=== PATIENT | female | born 1950 | race Caucasian/White ===

== ENCOUNTER 2017-12-02 13:36 | Inpatient (IN) | payer OTHER, BC ==
[~2017-12-02] VITALS: Ht 152.4 cm; Wt 92.1 kg
[~2017-12-02 13:36] MED LIST: ALEVE220 MG PO; BENAZEPRIL HCL20 MG PO; OMEPRAZOLE40 M1 PO; VENLAFAXINE H37.5 M3 PO; [UNRECOGNIZED DRUG - OTHER] PO
[2017-12-02 14:11] LABS: HEMATOCRIT 40.9 % (36.0-46.0); HEMOGLOBIN 14.1 G/DL (11.9-15.5); MCH 31.8 PG (29.0-34.0); MCHC 34.5 G/DL (30.0-36.0); MCV 92.3 FL (83-99); PLATELET COUNT 330 K/uL (156-360); RBC DIS.WIDTH-CV 12.1 % (11.8-14.6); RBC DIS.WIDTH-SD 40.9 % (39-53); RED BLOOD COUNT 4.43 M/uL (3.80-5.20); WHITE BLOOD COUNT 8.4 K/uL (4.1-10.2)
[2017-12-02 14:16] LABS: CHLORIDE 107 mEq/L (99-109); POTASSIUM 3.8 mEq/L (3.7-5.4); SODIUM 138 mEq/L (136-147)
[2017-12-02 14:18] LABS: GLUCOSE 119 mg/dL (70-99)
[2017-12-02 14:22] LABS: CREATININE 0.7 mg/dL (0.6-1.3); GFR ESTIMATE (CALCULATED) > 59 mL/min/
[2017-12-02 14:23] LABS: UREA NITROGEN (BUN) 13 mg/dL (9-23)
[2017-12-02] MEDS ORDERED: GABAPENTIN100 MG PO (15:59)
[2017-12-02] MEDS ORDERED: CYMBALTA60 MG PO (15:59)
[2017-12-02] MEDS ORDERED: CYANOCOBALAM1000 MCG PO (15:59)
[2017-12-02] MEDS ORDERED: LISINOPRIL5 MG PO (15:59)
[2017-12-02] MEDS ORDERED: VITAMIN D31000 UNI2 PO (15:59)
[2017-12-02 17:32] LABS: HDL CHOLESTEROL 51 MG/DL (Desirable>=50); LDL CHOLESTEROL 105 mg/dL (Desirable<100); NON-HDL CHOLESTEROL 149 mg/dL (Desirable<160); TOTAL CHOLESTEROL 200 mg/dL (Desirable<200); TRIGLYCERIDES 218 MG/DL (Normal: <150)
[2017-12-02 19:56] VITALS: BP 160/102
[2017-12-02 20:00] VITALS: BP 150/92
[2017-12-03] VITALS: BP 134/63
[2017-12-03 03:55] VITALS: BP 158/75
[2017-12-03 07:55] VITALS: BP 139/82
[2017-12-03 11:48] VITALS: BP 100/79
[2017-12-03 12:04] LABS: HEMOGLOBIN A1c (GLYCOHEMOGLOB) 5.7 % (Below 5.7)
[2017-12-03 16:30] VITALS: BP 140/70
[2017-12-03 22:00] VITALS: BP 142/72
[2017-12-04] VITALS: BP 146/80
[2017-12-04 03:58] VITALS: BP 148/68
[2017-12-04 07:13] VITALS: BP 157/74
[2017-12-04 10:55] VITALS: BP 138/69
[2017-12-04] MEDS ORDERED: ATORVASTATIN CA40 MG PO (11:41)
[2017-12-04] MEDS ORDERED: ASPIRIN EC325 MG PO (11:42)
== END 2017-12-04 13:29 | DRG 66 ==
LOC: EME 13:36 → EDOF 16:17 → 5SOUTH 16:17 → ENRESERV 16:18 → 5SOUTH 17:45
PROVIDERS: Hospitalist
DX: I63.9 Cerebral infarction, unspecified (principal); I10 Essential (primary) hypertension; G44.89 Other headache syndrome; K21.9 Gastro-esophageal reflux disease without esophagitis; G43.909 Migraine, unspecified, not intractable, without status migrainosus; F17.200 Nicotine dependence, unspecified, uncomplicated; I73.9 Peripheral vascular disease, unspecified; Z79.899 Other long term (current) drug therapy; Z90.710 Acquired absence of both cervix and uterus
CPT/HCPCS: 70450; 70496; 70498; 70551; 71045; 80048; 80061; 82948; 83036; 85027; 93005; 93306; 94640 76; 97530 GO; 99202; J1650; J7030

== ENCOUNTER 2017-12-04 08:56 | Inpatient (IN) | payer OTHER, BC ==
[~2017-12-04] VITALS: Ht 152.4 cm; Wt 94.7 kg
[~2017-12-04 08:56] MED LIST changes: +CYANOCOBALAM1000 MCG PO; +CYMBALTA60 MG PO; +GABAPENTIN100 MG PO; +LISINOPRIL5 MG PO; +VITAMIN D31000 UNI2 PO
[2017-12-04] MEDS ORDERED: ATORVASTATIN CA40 MG PO (11:41)
[2017-12-04] MEDS ORDERED: ASPIRIN EC325 MG PO (11:42)
[2017-12-04 14:00] VITALS: BP 132/70
[2017-12-05] VITALS: BP 144/83
[2017-12-05 05:04] VITALS: BP 155/68
[2017-12-05 06:31] LABS: HEMATOCRIT 35.9 % (36.0-46.0); MCH 31.8 PG (29.0-34.0); MCHC 33.7 G/DL (30.0-36.0); MCV 94.5 FL (83-99); PLATELET COUNT 264 K/uL (156-360); RBC DIS.WIDTH-CV 12.4 % (11.8-14.6); RBC DIS.WIDTH-SD 43.3 % (39-53); WHITE BLOOD COUNT 5.9 K/uL (4.1-10.2)
[2017-12-05 06:37] LABS: HEMOGLOBIN 12.1 G/DL (11.9-15.5)
[2017-12-05 06:44] LABS: ALBUMIN 3.3 G/DL (3.2-4.8); ALKALINE PHOSPHATASE 64 IU/L (3-129); ALT (GPT) 11 IU/L (3-49); AST (GOT) 15 IU/L (2-34); CHLORIDE 108 MEQ/L (99-109); CREATININE 0.7 MG/DL (0.6-1.3); GFR ESTIMATE (CALCULATED) > 59 mL/min/; GLUCOSE 100 mg/dL (70-99); POTASSIUM 4.4 MEQ/L (3.7-5.4); SODIUM 141 MEQ/L (136-147); TOTAL BILIRUBIN 0.3 MG/DL (0.0-1.0); TOTAL PROTEIN 5.4 G/DL (6.4-8.3); UREA NITROGEN (BUN) 12 mg/dL (9-23)
[2017-12-05 15:21] VITALS: BP 138/78
[2017-12-06 05:54] VITALS: BP 178/79
[2017-12-06 07:39] VITALS: BP 133/67
[2017-12-06 14:56] VITALS: BP 136/74
[2017-12-07 05:28] VITALS: BP 145/72
[2017-12-07 15:00] VITALS: BP 125/77
[2017-12-08 05:32] VITALS: BP 122/59
[2017-12-08 15:26] VITALS: BP 121/61
[2017-12-09 05:37] VITALS: BP 116/59
[2017-12-09 15:29] VITALS: BP 125/66
[2017-12-10 05:06] VITALS: BP 121/60
[2017-12-10 15:27] VITALS: BP 119/75
[2017-12-10 17:07] VITALS: BP 135/74
[2017-12-11 05:28] LABS: HEMATOCRIT 38.5 % (36.0-46.0); HEMOGLOBIN 12.6 G/DL (11.9-15.5); MCHC 32.7 G/DL (30.0-36.0); MCV 94.8 FL (83-99); PLATELET COUNT 284 K/uL (156-360); RBC DIS.WIDTH-CV 12.7 % (11.8-14.6); RED BLOOD COUNT 4.06 M/uL (3.80-5.20); WHITE BLOOD COUNT 8.3 K/uL (4.1-10.2)
[2017-12-11 05:56] LABS: ALBUMIN 3.7 G/DL (3.2-4.8); ALKALINE PHOSPHATASE 75 IU/L (3-129); ALT (GPT) 21 IU/L (3-49); AST (GOT) 22 IU/L (2-34); CHLORIDE 105 MEQ/L (99-109); CREATININE 0.7 MG/DL (0.6-1.3); GFR ESTIMATE (CALCULATED) > 59 mL/min/; GLUCOSE 107 mg/dL (70-99); POTASSIUM 4.6 MEQ/L (3.7-5.4); SODIUM 140 MEQ/L (136-147); TOTAL BILIRUBIN 0.4 MG/DL (0.0-1.0); TOTAL PROTEIN 6.3 G/DL (6.4-8.3); UREA NITROGEN (BUN) 20 mg/dL (9-23)
[2017-12-11 06:23] VITALS: BP 119/63
[2017-12-11 16:01] VITALS: BP 124/53
[2017-12-11] MEDS ORDERED: ATORVASTATIN CA40 MG PO (19:16)
[2017-12-11] MEDS ORDERED: LISINOPRIL5 MG PO (19:16)
[2017-12-11] MEDS ORDERED: ASPIRIN EC325 MG PO (19:16)
[2017-12-12 04:57] VITALS: BP 134/56
== END 2017-12-12 12:22 | DRG 57 ==
LOC: 3WEST 08:56 → ENPENDDIS 12-12 → 3WEST 12-12 12:22
PROVIDERS: Physical Medicine & Rehabilitation Pain Medicine
PROC: F07M0ZZ Range of Motion and Joint Mobility Treatment of Musculoskeletal System - Whole Body (ICD-10-PCS; principal; 2017-12-04)
DX: I69.351 Hemiplegia and hemiparesis following cerebral infarction affecting right dominant side (principal); I08.1 Rheumatic disorders of both mitral and tricuspid valves; K21.9 Gastro-esophageal reflux disease without esophagitis; F17.200 Nicotine dependence, unspecified, uncomplicated; E66.9 Obesity, unspecified; Z68.41 Body mass index [BMI] 40.0-44.9, adult; I10 Essential (primary) hypertension; E78.5 Hyperlipidemia, unspecified; G89.29 Other chronic pain; Z86.718 Personal history of other venous thrombosis and embolism; M25.511 Pain in right shoulder
CPT/HCPCS: 73030; 73060; 80053; 85027; 97110 GO; 97530 GP; 99202; J1650

== ENCOUNTER 2018-05-31 10:49 | Emergency (ER) | payer OTHER, BC ==
[~2018-05-31] VITALS: Ht 152.4 cm; Wt 92.7 kg
[~2018-05-31 10:49] MED LIST changes: +ASPIRIN EC325 MG PO; +ATORVASTATIN CA40 MG PO
[2018-05-31 12:07] LABS: HEMATOCRIT 42.7 % (36.0-46.0); HEMOGLOBIN 14.3 G/DL (11.9-15.5); MCH 31.4 PG (29.0-34.0); MCHC 33.5 G/DL (30.0-36.0); MCV 93.6 FL (83-99); PLATELET COUNT 313 K/uL (156-360); RBC DIS.WIDTH-CV 12.1 % (11.8-14.6); RBC DIS.WIDTH-SD 41.3 % (39-53); RED BLOOD COUNT 4.56 M/uL (3.80-5.20)
[2018-05-31 12:15] LABS: ALBUMIN 4.2 g/dL (3.2-4.8); CHLORIDE 106 mEq/L (99-109); POTASSIUM 4.1 mEq/L (3.7-5.4); SODIUM 138 mEq/L (136-147)
[2018-05-31 12:17] LABS: GLUCOSE 119 mg/dL (70-99)
[2018-05-31 12:18] LABS: TOTAL PROTEIN 7.7 g/dL (6.4-8.3)
[2018-05-31 12:19] LABS: TOTAL BILIRUBIN 0.6 mg/dL (0.0-1.0)
[2018-05-31 12:21] LABS: ALKALINE PHOSPHATASE 107 IU/L (3-129); CREATININE 0.8 mg/dL (0.6-1.3); GFR ESTIMATE (CALCULATED) > 59 mL/min/
[2018-05-31 12:22] LABS: UREA NITROGEN (BUN) 17 mg/dL (9-23)
[2018-05-31 12:23] LABS: AST (GOT) 17 IU/L (2-34)
[2018-05-31 12:24] LABS: ALT (GPT) 17 IU/L (3-49)
[2018-05-31 13:53] LABS: LIPASE 14 U/L (1.0-51.0)
[2018-05-31 14:41] LABS: APPEARANCE SL.HAZY ((CLEAR)); BILIRUBIN NEGATIVE; BLOOD NEGATIVE; COLOR YELLOW ((YELLOW)); GLUCOSE (STRIP) NEGATIVE; KETONES NEGATIVE; LEUKOCYTES NEGATIVE; NITRITE NEGATIVE; PROTEIN (STRIP) NEGATIVE; SPECIFIC GRAVITY 1.023 (1.000-1.030); UROBILINOGEN 0.2 MG/DL (0.2-1.0)
[2018-05-31 14:48] LABS: BACTERIA 3+ /HPF; EPITHELIAL CELLS 2+ /HPF; HYALINE CASTS 0-5 /LPF; MUCUS 2+ /LPF; RED BLOOD CELLS 0-5 /HPF (0-5); UCUL ADDED? YES; WHITE BLOOD CELLS 0-5 /HPF (0-5)
[2018-05-31] MEDS ORDERED: FLAGYL500 MG PO (14:53)
[2018-05-31] MEDS ORDERED: CIPRO500 MG PO (14:53)
[2018-05-31] MEDS ORDERED: BENTYL20 MG PO (14:53)
[2018-05-31 15:22] VITALS: BP 118/62
== END 2018-05-31 15:23 | disposition home or self-care (01) ==
LOC: EME 10:49
DX: K52.9 Noninfective gastroenteritis and colitis, unspecified (principal); E78.5 Hyperlipidemia, unspecified; I10 Essential (primary) hypertension; K21.9 Gastro-esophageal reflux disease without esophagitis; F41.9 Anxiety disorder, unspecified; F17.200 Nicotine dependence, unspecified, uncomplicated
CPT/HCPCS: 74177; 80053; 81003; 83690; 85027; 87086; 93005; 99281; 99285; J1885; J2405